=== PATIENT | male | born 1970 | race American Indian/Alaskan Native ===

== ENCOUNTER 2019-09-19 13:58 | Emergency (ER) | payer MEDICARE ==
[2019-09-19] MEDS ORDERED: ASPIRIN 325 MG TAB PO ONE (14:04)
[2019-09-19 14:53] LABS: Basophils % (Auto) 0.4 % (0.0-1.8); Eosinophils # (Auto) 0.1 K/mm3 (0.0-0.4); Eosinophils % (Auto) 1.1 % (0.0-4.3); Hematocrit 47.4 % (35.5-45.6); Hemoglobin 15.4 gm/dl (11.8-15.2); Lymphocytes # (Auto) 1.8 K/mm3 (1.2-5.4); Lymphocytes % (Auto) 32.3 % (13.4-35.0); Mean Corpuscular HGB Conc 33 % (32-34); Mean Corpuscular Volume 84 fl (84-94); Monocytes # (Auto) 0.8 K/mm3 (0.0-0.8); Monocytes % (Auto) 13.8 % (0.0-7.3); Platelet Count 321 K/mm3 (140-440); Red Blood Count 5.62 M/mm3 (3.65-5.03); Red Cell Distribution Width 15.4 % (13.2-15.2)
[2019-09-19 15:12] LABS: BUN/Creatinine Ratio 9; Blood Urea Nitrogen 13 mg/dL (9-20); Calcium 9.5 mg/dL (8.4-10.2); Hemolysis Index 6
--- NOTE | 2019-09-19 17:02 | Emergency Department Report ---
ED Chest Pain HPI - General Chief Complaint: Chest Pain Stated Complaint: CHEST PAIN & DIZZY Time Seen by Provider: 09/19/19 16:47 Source: patient Mode of arrival: Ambulatory Limitations: No Limitations - History of Present Illness Initial Comments: 49-year-old male with history of HIV (viral load undetectable), non-Hodgkin's lymphoma, and hypertension, presents to ED with chest pain, shortness of breath, dizziness. Patient reports onset of chest pain 2 weeks ago. States pain is located frontal area, feels like a cramp, lasts for only a few seconds at a time. Usually aggravated by exertion. Patient reports dyspnea on exertion as well. He denies any leg pain or swelling. Patient denies fever, cough, body aches, diarrhea, contact with anyone who has tested positive for COVID-19. Patient reports dizziness began 1 week ago. Patient reports he takes lisinopril, and states dosage was lowered about 3 months ago. Patient has been taken his blood pressure at home and states the diastolic has been elevated in the 90s and 100s. States his PCP advised him to come to the ED for further evaluation. MD Complaint: chest pain -: week(s) (2) Onset: during exertion Pain Location: substernal Pain Radiation: other (right shoulder) Severity: mild Severity scale (0 -10): 7 Quality: other (crampy) Consistency: intermittent Improves With: rest Worsens With: exertion re: dyspnea. denies: nausea, vomting, diaphoresis Other Symptoms: denies: cough, fever, leg swelling, palpitations - Related Data Home Medications Medication Instructions Recorded Confirmed Last Taken Bictegrav/Emtricit/Tenofov Ala 1 each PO QDAY 09/19/19 09/19/19 Unknown [Biktarvy 50-200-25 mg (Nf)] Cyanocobalamin [Vitamin B-12] 1,000 mcg IM QMONTH 09/19/19 09/19/19 Unknown Folic Acid 1 mg PO QDAY 09/19/19 09/19/19 Unknown Lisinopril [Zestril] 10 mg PO QDAY 09/19/19 09/19/19 Unknown Plecanatide [Trulance] 3 mg PO QDAY 09/19/19 09/19/19 Unknown Allergies Allergy/AdvReac Type Severity Reaction Status Date / Time No Known Allergies Allergy Verified 09/19/19 14:01 Heart Score - HEART Score History: Slightly suspicious EKG: Normal Age: 45-65 Risk factors: 1-2 risk factors Troponin: < normal limit HEART Score: 2 ED Review of Systems ROS: Stated complaint: CHEST PAIN & DIZZY Other details as noted in HPI Comment: All other systems reviewed and negative Constitutional: denies: chills, fever ENT: denies: throat pain Respiratory: SOB with exertion. denies: cough Cardiovascular: chest pain. denies: edema Gastrointestinal: denies: nausea, vomiting Musculoskeletal: other (denies leg pain or swelling) Neurological: denies: headache, weakness, numbness ED Past Medical Hx - Past Medical History Hx Hypertension: Yes Hx Diabetes: No Hx Sickle Cell Disease: No Hx Arthritis: No Hx Asthma: No Hx HIV: Yes - Surgical History Past Surgical History?: No - Social History Smoking Status: Never Smoker Substance Use Type: Marijuana - Medications Home Medications: Home Medications Medication Instructions Recorded Confirmed Last Taken Type Bictegrav/Emtricit/Tenofov Ala 1 each PO QDAY 09/19/19 09/19/19 Unknown History [Biktarvy 50-200-25 mg (Nf)] Cyanocobalamin [Vitamin B-12] 1,000 mcg IM QMONTH 09/19/19 09/19/19 Unknown History Folic Acid 1 mg PO QDAY 09/19/19 09/19/19 Unknown History Lisinopril [Zestril] 10 mg PO QDAY 09/19/19 09/19/19 Unknown History Plecanatide [Trulance] 3 mg PO QDAY 09/19/19 09/19/19 Unknown History ED Physical Exam - General Limitations: No Limitations General appearance: alert, in no apparent distress - Head Head exam: Present: atraumatic, normocephalic - Eye Eye exam: Present: normal appearance, EOMI - ENT ENT exam: Present: mucous membranes moist - Neck Neck exam: Present: normal inspection - Respiratory Respiratory exam: Present: normal lung sounds bilaterally. Absent: respiratory distress - Cardiovascular Cardiovascular Exam: Present: regular rate, normal rhythm - GI/Abdominal GI/Abdominal exam: Present: soft. Absent: distended, tenderness - Extremities Exam Extremities exam: Present: normal inspection. Absent: pedal edema, calf tenderness - Neurological Exam Neurological exam: Present: alert, oriented X3, CN II-XII intact, normal gait. Absent: motor sensory deficit - Psychiatric Psychiatric exam: Present: normal affect, normal mood - Skin Skin exam: Present: warm, dry, intact, normal color ED Course Vital Signs 09/19/19 09/19/19 09/19/19 13:56 14:00 14:04 Temperature 98.7 F Pulse Rate 74 Respiratory 18 Rate Blood Pressure 88/53 Blood Pressure 143/97 [Left] O2 Sat by Pulse 100 97 97 Oximetry 09/19/19 09/19/19 09/19/19 14:15 14:30 16:57 Temperature Pulse Rate 84 Respiratory 18 Rate Blood Pressure 100/64 96/63 85/50 Blood Pressure [Left] O2 Sat by Pulse 99 94 100 Oximetry 09/19/19 09/19/19 09/19/19 16:59 17:00 17:30 Temperature Pulse Rate 85 77 Respiratory 16 19 21 Rate Blood Pressure 141/102 143/99 Blood Pressure [Left] O2 Sat by Pulse 99 99 100 Oximetry 09/19/19 09/19/19 18:00 18:30 Temperature Pulse Rate 71 86 Respiratory 14 22 Rate Blood Pressure 134/81 135/85 Blood Pressure [Left] O2 Sat by Pulse 100 98 Oximetry ED Medical Decision Making - Lab Data Result diagrams: 09/19/19 14:24 09/19/19 14:24 - EKG Data -: EKG Interpreted by [place] EKG shows normal: sinus rhythm, axis, intervals, QRS complexes, ST-T waves Rate: normal - EKG Data Interpretation: no acute changes - Radiology Data Radiology results: report reviewed, image reviewed - Medical Decision Making 49 yo M w/ chest pain x 2 weeks. EKG normal x2, no ST changes. Troponin negative x 2. Blood pressure is slightly elevated, no neuro deficits on exam. D-dimer also within normal limits. Remainder of labs normal. CXR unremarkable. Pt info faxed to [facility] for urgent cardiac follow-up. Return precautions given. - Differential Diagnosis ACS, PE, pneumonia Critical care attestation.: If time is entered above; I have spent that time in minutes in the direct care of this critically ill patient, excluding procedure time. ED Disposition Clinical Impression: Chest pain Disposition: DC-01 TO HOME OR SELFCARE Is pt being admited?: No Condition: Stable Instructions: Chest Pain (ED) Referrals: HEENA DAILEY MD [Staff Physician] - 3-5 Days PRIMARY CARE, [Referring] - 3-5 Days Time of Disposition: 18:17
[2019-09-19 17:59] LABS: INR 1.18 (0.87-1.13); Partial Thromboplastin Time 27.5 Sec. (24.2-36.6)
[2019-09-19 18:39] VITALS: BP 135/85
== END 2019-09-19 18:46 | disposition home or self-care (01) ==
LOC: ED 13:58
DX: R07.89 Other chest pain (principal); R06.02 Shortness of breath; R42 Dizziness and giddiness; I10 Essential (primary) hypertension; F12.10 Cannabis abuse, uncomplicated; Z21 Asymptomatic human immunodeficiency virus [HIV] infection status; Z79.899 Other long term (current) drug therapy
CPT/HCPCS: 36415; 71046; 80048; 84484; 85025; 85379; 85610; 85730; 93005

== ENCOUNTER 2020-11-24 10:09 | Emergency (ER) | payer MEDICARE ==
[2020-11-24 10:38] VITALS: BP 149/101
[2020-11-24] MEDS ORDERED: ASPIRIN 325 MG TAB PO ONE (10:38)
--- NOTE | 2020-11-24 11:06 | XRay Report ---
CHEST 2 VIEWS INDICATION / CLINICAL INFORMATION: CP/COUGH. COMPARISON: 09/19/2019 FINDINGS: SUPPORT DEVICES: None. HEART / MEDIASTINUM: No significant abnormality. LUNGS / PLEURA: No significant pulmonary or pleural abnormality. No pneumothorax. ADDITIONAL FINDINGS: No significant additional findings. IMPRESSION: 1. No acute findings. Signer Name: Yang Wasserman DO Signed: 11/24/2020 11:02 AM Workstation Name: [id number]
[2020-11-24 11:38] LABS: Basophils % (Auto) 0.4 % (0.0-1.8); Eosinophils # (Auto) 0.1 K/mm3 (0.0-0.4); Eosinophils % (Auto) 1.5 % (0.0-4.3); Hematocrit 46.8 % (35.5-45.6); Hemoglobin 15.7 gm/dl (11.8-15.2); Lymphocytes # (Auto) 1.8 K/mm3 (1.2-5.4); Lymphocytes % (Auto) 31.4 % (13.4-35.0); Mean Corpuscular HGB Conc 34 % (32-34); Mean Corpuscular Volume 87 fl (84-94); Monocytes # (Auto) 0.6 K/mm3 (0.0-0.8); Monocytes % (Auto) 10.4 % (0.0-7.3); Platelet Count 272 K/mm3 (140-440); Red Blood Count 5.35 M/mm3 (3.65-5.03); Red Cell Distribution Width 14.6 % (13.2-15.2)
[2020-11-24 12:08] LABS: Alanine Aminotransferase 43 units/L (7-56); Albumin 4.2 g/dL (3.9-5); BUN/Creatinine Ratio 6; Blood Urea Nitrogen 8 mg/dL (9-20); Calcium 9.8 mg/dL (8.4-10.2); Hemolysis Index 8
--- NOTE | 2020-11-24 18:23 | Event Note ---
ED Screening Note Date of service: 11/24/20 Time: 18:20 ED Screening Note: 50-year-old male patient with history of hypertension, HIV, BMI >30, and non- Hodgkin's lymphoma (in remission) presents to the emergency department with complaints of chest pain with associated shortness of breath, nausea, and dizziness starting 3 days ago. Symptoms have been intermittent since onset. Symptoms last approximately 30 minutes when present. No identifiable exacerbating or relieving factors. Viral load is undetectable. General: Awake, appropriately interactive, no acute distress. Neck: Supple. Full range of motion intact. Cardiovascular: Normal peripheral perfusion. Pulmonary: No respiratory distress. Patient is speaking normally without use of accessory muscles. Skin: No apparent rashes or lesions. Neurological: No facial asymmetry. Speech is clear. Follows commands. Patient is alert and oriented. Musculoskeletal: Moves all four extremities spontaneously with normal range of motion. Psych: Cooperative. Appropriate mood and affect. HEART Score: History - 1 EKG - 0 Age -1 Risk Factors - 2 Troponin - 0 TOTAL = 4 I have greeted and performed a focused rapid initial assessment of this patient. A comprehensive ED assessment and evaluation of the patient, analysis of all test results, and completion of the medical decision-making process will be conducted by additional ED providers. This initial assessment/diagnostic orders/clinical plan/treatment(s) is/are subject to change based on patients health status, clinical progression and re-assessment. Further treatment and workup at subsequent clinical provider's discretion. Patient/guardian urged not to elope from the ED as their condition may be serious if not clinically assessed and managed.
--- NOTE | 2020-11-24 21:53 | Emergency Department Report ---
ED Chest Pain HPI - General Chief Complaint: Chest Pain Stated Complaint: COUGH/CHEST TIGHTNESS/DIZZY PUI?: No Time Seen by Provider: 11/24/20 21:10 Source: patient Mode of arrival: Ambulatory Limitations: No Limitations - History of Present Illness Initial Comments: Patient is a 50-year-old male that presents emergency room with complaints of chest pain, cough and dizziness. Patient also complains of sinus congestion. Patient states that his dizziness started approximately 1 week ago. Patient states his chest tightness started 4 days ago. Patient states that shortness of breath started 4 days ago. Patient states the cough started 4 days ago. Patient states he has a lot of sinus problems. Patient denies fever and chills. Patient states he has had both doses of his COVID-19 vaccine. Patient states that his cough is productive. Patient states the sputum from his cough is green. Patient states that he has a runny nose and sinus discharge. Patient states the sinus discharge is yellow. Patient states he has not seen his doctor for any symptoms. Patient states his dizziness is better with rest and worse w ith exertion. Patient states that shortness of breath is better with rest. Patient states shortness of breath is worse with cough and exertion. Patient denies recent travel. Patient denies recent international travel. Patient denies exposure to the novel coronavirus. Patient denies sick contacts. Patient denies fever and chills. Patient denies loss of smell.. Patient denies diarrhea. Patient denies coming in contact with anybody with symptoms of the novel coronavirus. Patient states he was here a year ago for similar symptoms and the patient referred to [facility]. Patient states he already has a fish machine feeder. Patient states within the last year he has had a full cardiac work-up which was negative. Patient states she had a nuclear stress test, a 7-day Holter monitor and both were completely normal. Patient states he is also had an echo cardiogram and it was normal. . Complaint: chest pain -: Sudden Onset: during rest Pain Location: substernal Pain Radiation: none Severity scale (0 -10): 4 Quality: heaviness Consistency: constant Improves With: rest Worsens With: movement, other Context: recent illness re: nausea, dyspnea. denies: vomting, diaphoresis, sense of impending doom Other Symptoms: cough. denies: fever, syncope, rash, acid taste in mouth, leg swelling, palpitations, burping Treatments Prior to Arrival: none Aspirin use within the Past 7 Days: (0) No - Related Data On Oral Contraceptives: No Home Medications Medication Instructions Recorded Confirmed Last Taken Bictegrav/Emtricit/Tenofov Ala 1 each PO QDAY 09/19/19 09/19/19 Unknown [Biktarvy 50-200-25 mg (Nf)] Cyanocobalamin [Vitamin B-12] 1,000 mcg IM QMONTH 09/19/19 09/19/19 Unknown Folic Acid 1 mg PO QDAY 09/19/19 09/19/19 Unknown Lisinopril [Zestril] 10 mg PO QDAY 09/19/19 09/19/19 Unknown Plecanatide [Trulance] 3 mg PO QDAY 09/19/19 09/19/19 Unknown Previous Rx's Medication Instructions Recorded Last Taken Type Doxycycline Hyclate [Doxycycline 100 mg PO Q12HR 10 Days #20 tab 11/24/20 Unknown Rx Hyclate TAB] methylPREDNISolone [Medrol 4MG 4 mg PO DAILY 6 Days #1 tab.ds.pk 11/24/20 Unknown Rx DOSEPAK (21 tabs)] Allergies Allergy/AdvReac Type Severity Reaction Status Date / Time No Known Allergies Allergy Verified 11/24/20 10:34 Heart Score - HEART Score History: Slightly suspicious EKG: Normal Age: 45-65 Risk factors: 1-2 risk factors Troponin: < normal limit HEART Score: 2 - EKG Read Time Time EKG Completed: 10:30 EKG Read Time: 10:30 (0) ED Review of Systems ROS: Stated complaint: COUGH/CHEST TIGHTNESS/DIZZY Other details as noted in HPI Constitutional: denies: chills, fever Eyes: denies: eye pain, eye discharge, vision change ENT: congestion. denies: ear pain, throat pain Respiratory: cough, shortness of breath. denies: wheezing Cardiovascular: denies: chest pain, palpitations Endocrine: no symptoms reported Gastrointestinal: denies: abdominal pain, nausea, diarrhea Genitourinary: denies: urgency, dysuria Musculoskeletal: denies: back pain, joint swelling, arthralgia Skin: denies: rash, lesions Neurological: as per HPI. denies: headache, weakness, paresthesias Psychiatric: denies: anxiety, depression Hematological/Lymphatic: denies: easy bleeding, easy bruising ED Past Medical Hx - Past Medical History Previous Medical History?: Yes Hx Hypertension: Yes Hx Diabetes: No Hx Sickle Cell Disease: No Hx Arthritis: No Hx Asthma: No Hx HIV: Yes - Surgical History Past Surgical History?: No - Family History Family history: no significant - Social History Smoking Status: Never Smoker Substance Use Type: None, Marijuana - Medications Home Medications: Home Medications Medication Instructions Recorded Confirmed Last Taken Type Bictegrav/Emtricit/Tenofov Ala 1 each PO QDAY 09/19/19 09/19/19 Unknown History [Biktarvy 50-200-25 mg (Nf)] Cyanocobalamin [Vitamin B-12] 1,000 mcg IM QMONTH 09/19/19 09/19/19 Unknown History Folic Acid 1 mg PO QDAY 09/19/19 09/19/19 Unknown History Lisinopril [Zestril] 10 mg PO QDAY 09/19/19 09/19/19 Unknown History Plecanatide [Trulance] 3 mg PO QDAY 09/19/19 09/19/19 Unknown History Doxycycline Hyclate [Doxycycline 100 mg PO Q12HR 10 Days #20 tab 11/24/20 Unknown Rx Hyclate TAB] methylPREDNISolone [Medrol 4MG 4 mg PO DAILY 6 Days #1 tab.ds.pk 11/24/20 Unknown Rx DOSEPAK (21 tabs)] ED Physical Exam - General Limitations: No Limitations General appearance: alert, in no apparent distress - Head Head exam: Present: atraumatic, normocephalic - Eye Eye exam: Present: normal appearance, PERRL Pupils: Present: normal accommodation - ENT ENT exam: Present: mucous membranes moist, other (Tenderness to palpation of the maxillary sinuses.) - Neck Neck exam: Present: normal inspection - Respiratory Respiratory exam: Present: rhonchi, chest wall tenderness (Patient has sternal tenderness to palpation and palpation of the chest wall reproduces symptoms. ). Absent: respiratory distress, wheezes, rales, decreased breath sounds - Cardiovascular Cardiovascular Exam: Present: regular rate, normal rhythm. Absent: systolic murmur, diastolic murmur, rubs, gallop - GI/Abdominal GI/Abdominal exam: Present: soft, normal bowel sounds - Rectal Rectal exam: Present: deferred - Extremities Exam Extremities exam: Present: normal inspection - Back Exam Back exam: Present: normal inspection - Neurological Exam Neurological exam: Present: alert, oriented X3, CN II-XII intact, normal gait - Psychiatric Psychiatric exam: Present: normal affect, normal mood - Skin Skin exam: Present: warm, dry, intact, normal color. Absent: rash ED Course Vital Signs 11/24/20 10:37 Temperature 98.6 F Pulse Rate 66 Respiratory 20 Rate Blood Pressure 149/101 O2 Sat by Pulse 98 Oximetry - Reevaluation(s) Reevaluation #1: I discussed all results and clinical findings with patient. I discussed plan of care with patient. Patient agrees with plan of care. Patient is stable for discharge. Patient will be discharged home. Patient given discharge instructions. Patient voiced understanding of discharge instructions. 11/24/20 22:05 KHARI score - Khari Score Age > 65: (0) No Aspirin use within the Past 7 Days: (0) No 3 or more CAD Risk Factors: (0) No 2 or more Angina events in past 24 hrs: (0) No Known CAD with more than 50% Stenosis: (0) No Elevated Cardiac Markers: (0) No ST Deviation Greater than 0.5mm: (0) No KHARI Score: 0 ED Medical Decision Making - Lab Data Result diagrams: 11/24/20 10:56 11/24/20 10:56 - EKG Data -: EKG Interpreted by Al EKG shows normal: sinus rhythm, axis, intervals, QRS complexes, ST-T waves Rate: normal - Radiology Data Radiology results: report reviewed, image reviewed interpreted by me: Chest x-ray: No pneumonia, no pneumothorax, no foreign body, no osseous findings, no acute findings CHEST 2 VIEWS INDICATION / CLINICAL INFORMATION: CP/COUGH. COMPARISON: 09/19/2019 FINDINGS: SUPPORT DEVICES: None. HEART / MEDIASTINUM: No significant abnormality. LUNGS / PLEURA: No significant pulmonary or pleural abnormality. No pneumothorax. ADDITIONAL FINDINGS: No significant additional findings. IMPRESSION: 1. No acute findings. - Medical Decision Making Patient is a 50-year-old male who presents emergency room with complaints of sternal chest pain, cough and dizziness. Patient ambulatory in the ER without difficulty. Patient neuro exam is negative. Patient on exam noted to have reproducible chest pain. Patient on lung exam noted to have mild bilateral rhonchi. Patient noted to have sinus tenderness. Patient's chest x-ray showed no acute findings. Patient did have a pneumonia on his chest x-ray. Patient had an EKG done. Patient's EKG was unchanged from a year ago and it was a normal sinus rhythm with no ST changes. Patient recently had a stress test which was negative. Patient already has a fish machine feeder. Patient's chest pain is low risk. Patient's had labs done. Patient's labs are essentially unr emarkable. Patient had 3 normal troponins. Patient does not require further emergency medical service. Patient not require inpatient services. Patient is stable for discharge. Patient will be treated as an outpatient. Patient referred back to [facility] for further evaluation and treatment and restratification as the patient presented to the emergency room with a complaint of chest pain. Patient will be treated for sinus infection and bronchitis. Patient was given antibiotics and steroids. - Differential Diagnosis Bronchitis, chest pain, sinusitis, URI, chest wall tenderness Critical care attestation.: If time is entered above; I have spent that time in minutes in the direct care of this critically ill patient, excluding procedure time. ED Disposition Clinical Impression: Anterior chest wall pain, Bronchitis, Dizziness, Cough Chest pain Qualifiers: Chest pain type: unspecified Qualified Code(s): R07.9 - Chest pain, unspecified Sinusitis Qualifiers: Sinusitis location: maxillary Chronicity: acute Recurrence: non-recurrent Qualified Code(s): J01.00 - Acute maxillary sinusitis, unspecified URI (upper respiratory infection) Qualifiers: URI type: unspecified URI Qualified Code(s): J06.9 - Acute upper respiratory infection, unspecified Disposition: DC-01 TO HOME OR SELFCARE Is pt being admited?: No Does the pt Need Aspirin: No Condition: Stable Instructions: Nonspecific Chest Pain, Adult, Chronic Bronchitis (ED), Upper Respiratory Infection, Adult, [id number], Sinusitis, Adult, [id number], Chest Wall Pain, [id number], Cough, Adult, Dizziness, [id number] Additional Instructions: Patient to follow-up with primary care in 2 to 3 days. Patient to follow-up with her fish machine feeder in 2 to 3 days. Patient to follow-up with ENT and n eurology in 2 to 3 days. Patient to rest. Patient to increase water. Patient to avoid strenuous exercise or heavy lifting until cleared by cardiology and primary care. Patient to take Tylenol or ibuprofen as needed for pain. Patient to take meds as directed. Patient to return to the ER if condition worsens, changes or new symptoms arise. Patient to self quarantine until cleared by primary care.. Patient to be checked as an outpatient for COVID-19 with a rapid or PCR. Prescriptions: Doxycycline Hyclate [Doxycycline Hyclate TAB] 100 mg PO Q12HR 10 Days #20 tab methylPREDNISolone [Medrol 4MG DOSEPAK (21 tabs)] 4 mg PO DAILY 6 Days #1 tab.ds.pk Referrals: MARCIA MAGAÑA FNP [Primary Care Provider] - 2-3 Days HILLARY ESCALANTE MD [Staff Physician] - 2-3 Days TYSON AMBROSIO MD [Staff Physician] - 2-3 Days SNEHAL ROACH MD [Staff Physician] - 2-3 Days Time of Disposition: 22:12
--- NOTE | 2020-11-26 17:32 | Electrocardiograph Report ---
[facility] Test Date: 2020-11-24 Test Time: 10:30:30 Pat Name: LORIE MENEZES Department: Room: Gender: M Business Performance Specialist: DAYANNA : 1970 Requested By: ED DOC Order Number: [id number] Reading MD: Mehul Noguera Measurements Intervals Cunningham Rate: 67 P: 7 RI: 175 QRS: -17 QRSD: 81 T: 75 QT: 408 QTc: 431 Interpretive Statements Sinus rhythm No previous ECG available for comparison Electronically Signed On 11-26-2020 17:32:35 EDT by Mehul Noguera
== END 2020-11-25 | disposition home or self-care (01) ==
LOC: ED 10:09
DX: J40 Bronchitis, not specified as acute or chronic (principal); J32.9 Chronic sinusitis, unspecified; I10 Essential (primary) hypertension; F12.10 Cannabis abuse, uncomplicated
CPT/HCPCS: 36415; 71046; 80053; 84484; 85025; 93005; 99283